=== PATIENT | female | born 1935 | race African-American/Black ===

== ENCOUNTER → 2017-03-24 | Emergency (ER) | payer OTHER ==
[~2017-03-24] VITALS: Ht 157.5 cm; Wt 63.5 kg
[~2017-03-24] MED LIST: ACETAMINOPHEN325 M1 ORAL; AMLODIPINE BESY10 MG ORAL; ATORVASTATIN CA20 MG ORAL; DONEPEZIL HCL10 M2 ORAL; FAMOTIDINE20 MG ORAL; Famotidine 20 MG/ 2ML VIAL IVP ONE; HYDRALAZINE HCL50 MG ORAL; LEVAQUIN750 MG ORAL; MINOXIDIL10 MG PO; MULTIVITAMINS1 EAC8 ORAL; NITROGLYCERIN0.4 MG SL; Nitroglycerin 2% oint pkt TOPIC ONE; OMEPRAZOLE20 M2 ORAL; OXYBUTYNIN CHLO10 MG PO; SERTRALINE HCL25 MG ORAL; VITAMIN B-12500 MCG ORAL; VITAMIN C500 M1 ORAL; ZOFRAN4 M3 ORAL; cefTRIAXone 1 GM in NS 55 ML IVPB ONE
[2017-03-24 10:02] VITALS: BP 115/44
--- NOTE | 2017-03-24 10:20 | Emergency Room Report ---
History of Present Illness General Chief Complaint: Chest Pain Source: Patient Present Illness HPI Patient presents with chest pain which began this morning. She states she felt that someone was sitting on her heart. She's had this pain before. The medics gave her nitroglycerin and the pain is now less according to the nurses she stated that is 0. She claimed the pain is "less" to me. She says she vomited one time this morning. She denies any fevers, cough, chills, sore throat. There is no swelling in her extremities or calf pain. She has an aspirin allergy therefore none was given. According to her son, she has had CHF and prior stents. She has a whizzer who follows her at [facility]. No fevers, chills, palpitations, nausea, diarrhea, dysuria, abdominal pain, shortness of breath, depression, visual changes, headache. Allergies: Coded Allergies: ASPIRIN (Verified Allergy, Unknown, 03/24/17) PENICILLINS (Verified Allergy, Unknown, 03/24/17) Patient History Past Medical History: see triage record Social History Narrative born [place] Reviewed Nursing Documentation: PMH: Agreed, PSxH: Agreed Nursing Documentation-PMH Hx Cardiac Problems: Yes - LA; Hyperlipidemia; Anemia; Thrombocytopenia Hx Hypertension: Yes Hx Gastrointestinal Problems: Yes - Reflux; Peptic ulcer History Of Psychiatric Problem: Yes - Dementia; Alzheimer's Review of Systems All Other Systems: negative except mentioned in HPI Physical Exam Vital Signs Date Time Temp Pulse Resp B/P Pulse Ox O2 Delivery O2 Flow Rate FiO2 03/24/17 09:55 97.5 82 18 115/44 97 Room Air Sp02 EP Interpretation: reviewed, normal General Appearance: well appearing, no apparent distress, GCS 15 Head: normocephalic Eyes: bilateral eye PERRL, bilateral eye normal inspection ENT: moist mucus membranes Neck: supple Respiratory: lungs clear - anteriorly, decreased breath sounds, crackles Cardiovascular #1: regular rate, rhythm, no edema Cardiovascular #2: 2+ radial (R) Gastrointestinal: normal inspection, normal bowel sounds, non tender, no mass, non-distended Musculoskeletal: back normal, gait/station normal, normal range of motion Neurologic: alert, motor strength/tone normal, DTRs symmetric, sensory intact, motor weakness, oriented - X2 Psychiatric: depressed affect Reflexes: 1+ knee (R), 1+ knee (L) Skin: normal inspection, warm/dry Medical Decision Making Diagnostic Impression: Primary Impression: Chest pain Qualified Codes: R07.9 - Chest pain, unspecified Additional Impressions: CHF (congestive heart failure) Qualified Codes: I50.43 - Acute on chronic combined systolic (congestive) and diastolic (congestive) heart failure UTI (urinary tract infection) Qualified Codes: N30.00 - Acute cystitis without hematuria ER Course The patient presents with chest pain. This was resolved with nitroglycerin in the field. She has aspirin allergy. Differential includes acute coronary syndrome, acute myocardial infarction, costochondritis, GERD, gastritis amongst others. Evaluation is undertaken with EKG, chest x-ray and labs. Nitroglycerin paste is applied to her chest. She is pain-free at this time. Her EKG here sinus rhythm rate of 82 with possible lateral ischemia and prolonged QT interval. Patient treated with lasix as CHF with bilateral effusions (probably reason for decreased BS). Also started on rocephin for UTI. Improved. Family wants transfer to [facility]. Discussed with Dr. Ghosh who is at an observation center. He accepts patient. I left a message with the family then discussed with them. They were upset that she was not going to [facility]. Patient improved and stable for transfer. Laboratory Tests Test 03/24/17 10:35 White Blood Count 10.1 K/UL (4.8-10.8) Red Blood Count 3.47 M/UL (4.20-5.40) L Hemoglobin 10.6 G/DL (12.0-16.0) L Hematocrit 33.8 % (37.0-47.0) L Mean Corpuscular Volume 97 FL (80-99) Mean Corpuscular Hemoglobin 30.4 PG (27.0-31.0) Mean Corpuscular Hemoglobin Concent 31.3 G/DL (32.0-36.0) L Red Cell Distribution Width 15.7 % (11.6-14.8) H Platelet Count 435 K/UL (150-450) Mean Platelet Volume 5.0 FL (6.5-10.1) L Neutrophils (%) (Auto) 78.7 % (45.0-75.0) H Lymphocytes (%) (Auto) 13.1 % (20.0-45.0) L Monocytes (%) (Auto) 4.1 % (1.0-10.0) Eosinophils (%) (Auto) 3.3 % (0.0-3.0) H Basophils (%) (Auto) 0.9 % (0.0-2.0) Prothrombin Time 10.2 SEC (9.30-11.50) Prothrombin Time INR 1.0 (0.9-1.1) PTT 32 SEC (23-33) Urine Color Yellow Urine Appearance Slightly cloudy Urine pH 5 (4.5-8.0) Urine Specific [place] 1.020 (1.005-1.035) Urine Protein 2+ (NEGATIVE) H Urine Glucose (UA) Negative (NEGATIVE) Urine Ketones Negative (NEGATIVE) Urine Occult Blood 2+ (NEGATIVE) H Urine Nitrite Negative (NEGATIVE) Urine Bilirubin Negative (NEGATIVE) Urine Urobilinogen Normal MG/DL (0.0-1.0) Urine Leukocyte Esterase 1+ (NEGATIVE) H Urine RBC 15-20 /HPF (0 - 2) H Urine WBC 5-10 /HPF (0 - 2) H Urine Squamous Epithelial Cells Few /LPF (NONE/OCC) Urine Bacteria Moderate /HPF (NONE) H Urine Mucus Few /LPF (NONE/OCC) H Sodium Level 142 mEQ/L (135-145) Potassium Level 5.7 mEQ/L (3.4-4.9) H Chloride Level 112 mEQ/L (98-107) H Carbon Dioxide Level 16 mEQ/L (20-30) L Anion Gap 14 (5-15) Blood Urea Nitrogen 45 mg/dL (7-23) H Creatinine 2.6 mg/dL (0.5-0.9) H Estimate Glomerular Filtration Rate mL/min (>60) Glucose Level 170 mg/dL (74-106) H Calcium Level 8.5 mg/dL (8.6-10.2) L Total Bilirubin 0.3 mg/dL (0.0-1.2) Aspartate Amino Transferase (AST) 28 U/L (5-40) Alanine Aminotransferase (ALT) 16 U/L (3-33) Alkaline Phosphatase 102 U/L (35-104) Total Creatine Kinase 96 U/L (26-140) Creatine Kinase MB 4.1 ng/mL (< 3.8) H Creatine Kinase MB Relative Index 4.2 Troponin I < 0.30 ng/mL (<=0.30) Pro-B-Type Natriuretic Peptide 23765 pg/mL (0-450) H Total Protein 6.9 g/dL (6.6-8.7) Albumin 2.7 g/dL (3.5-5.2) L Globulin 4.2 g/dL Albumin/Globulin Ratio 0.6 (1.0-2.7) L EKG Diagnostic Results Rate: normal Rhythm: NSR ST Segments: no acute changes - lateral strain Rhythm Strip Diag. Results EP Interpretation: yes Rhythm: NSR, no PVC's, no ectopy Chest X-Ray Diagnostic Results Chest X-Ray Diagnostic Results : Chest X-Ray Ordered: Yes # of Views/Limited/Complete: 1 View Indication: Chest Pain EP Interpretation: Yes Interpretation: no pneumothorax, other - CHF, bilateral effusions Last Vital Signs Date Time Temp Pulse Resp B/P Pulse Ox O2 Delivery O2 Flow Rate FiO2 03/24/17 16:38 87 18 127/53 98 Room Air 03/24/17 16:35 97.8 Status: improved Disposition: ER [facility] Condition: Serious - but stable for transfer Austen Montenegro M.D. Mar 24, 2017 10:20
[2017-03-24 10:54] LABS: BASOPHILS % (AUTO) 0.9 % (0.0-2.0); EOSINOPHILS % (AUTO) 3.3 % (0.0-3.0); LYMPHOCYTES % (AUTO) 13.1 % (20.0-45.0); MEAN CORPUSCULAR HEMOGLOBIN 30.4 PG (27.0-31.0); MEAN CORPUSCULAR HGB CONC 31.3 G/DL (32.0-36.0); MEAN CORPUSCULAR VOLUME 97 FL (80-99); MONOCYTES % (AUTO) 4.1 % (1.0-10.0); NEUTROPHILS % (AUTO) 78.7 % (45.0-75.0); PLATELET COUNT 435 K/UL (150-450); RED BLOOD COUNT 3.47 M/UL (4.20-5.40); RED CELL DISTRIBUTION WIDTH 15.7 % (11.6-14.8); WHITE BLOOD COUNT 10.1 K/UL (4.8-10.8)
[2017-03-24 10:55] LABS: KETONES,URINE NEGATIVE (NEGATIVE); LEUKOCYTE ESTERASE ,URINE 1+ (NEGATIVE); NITRITE,URINE NEGATIVE (NEGATIVE); PH,URINE 5 (4.5-8.0); PROTEIN,URINE 2+ (NEGATIVE); UROBILINOGEN,URINE NORMAL MG/DL (0.0-1.0)
[2017-03-24 11:08] LABS: TROPONIN I < 0.30 ng/mL (<=0.30)
[2017-03-24 11:09] LABS: ALANINE AMINOTRANSFERASE 16 U/L (3-33); ALBUMIN/GLOBULIN RATIO 0.6 (1.0-2.7); ANION GAP 14 (5-15); ASPARTATE AMINO TRANSFERASE 28 U/L (5-40); CALCIUM 8.5 mg/dL (8.6-10.2); CARBON DIOXIDE 16 mEQ/L (20-30); CHLORIDE 112 mEQ/L (98-107); CREATININE 2.6 mg/dL (0.5-0.9); HEMOLYSIS 19; POTASSIUM 5.7 mEQ/L (3.4-4.9); SODIUM 142 mEQ/L (135-145); TOTAL PROTEIN 6.9 g/dL (6.6-8.7)
[2017-03-24 11:11] LABS: APPEARANCE,URINE SLIGHTLY CLOUDY; BACTERIA,URINE MODERATE /HPF; MUCUS,URINE FEW /LPF (NONE/OCC); RBC,URINE 15-20 /HPF (0 - 2); SQUAMOUS EPITHELIAL CELL,UR FEW /LPF (NONE/OCC)
--- NOTE | 2017-03-24 11:13 | Diagnostic Imaging Report ---
Indication: Chest pain Comparison: None A single view chest radiograph was obtained. Findings: Interstitial edema is present. Bilateral groundglass opacities likely pleural effusions demonstrated. The heart is enlarged. Bones are osteopenic. Impression: Interstitial edema and bilateral pleural effusions
[2017-03-24 11:15] LABS: PROTHROMBIN TIME 10.2 SEC (9.30-11.50)
[2017-03-24 11:20] LABS: CKMB 4.1 ng/mL (< 3.8)
[2017-03-24 16:35] VITALS: BP 90/56
[2017-03-24 16:38] VITALS: BP 127/53
--- NOTE | 2017-03-25 17:07 | Cardiology Report ---
APPROVED REPORT EKG Measurement Heart [id number] Normal sinus rhythm T wave abnormality, consider lateral ischemia Prolonged QT Abnormal ECG
== END | disposition short-term general hospital (02) ==
LOC: EDBD 09:54 → EMR 10:13
DX: R07.9 Chest pain, unspecified (principal); I50.43 Acute on chronic combined systolic (congestive) and diastolic (congestive) heart failure; N30.00 Acute cystitis without hematuria; Z88.6 Allergy status to analgesic agent; Z88.0 Allergy status to penicillin; Z95.5 Presence of coronary angioplasty implant and graft; I10 Essential (primary) hypertension; Z87.11 Personal history of peptic ulcer disease; G30.9 Alzheimer's disease, unspecified; F02.80 Dementia in other diseases classified elsewhere, unspecified severity, without behavioral disturbance, psychotic disturbance, mood disturbance, and anxiety; J90 Pleural effusion, not elsewhere classified
CPT/HCPCS: 36415; 71010; 80053; 81003; 82550; 82553; 83880; 84484; 85025; 85610; 85730; 87086; 93005; 96374; 96375; 99285; J0696; J1940; S0028